=== PATIENT | female | born 1960 | race Caucasian/White ===

== ENCOUNTER 2025-02-03 08:05 | Observation (INO) ==
--- NOTE | 2025-01-20 12:51 | PAT Medication Instructions ---
Medication Instructions Date of Service January 20, 2025 Home Medications duloxetine 20 mg capsule,delayed release 20 mg PO HS esomeprazole magnesium 40 mg capsule,delayed release (Nexium) 40 mg PO BID famotidine 20 mg tablet (Pepcid) 20 mg PO HS levothyroxine 112 mcg tablet 112 mcg PO QAM medical marijuana 1 dose PO UD PRN Pain/energy cetirizine 10 mg tablet 10 mg PO QAM aripiprazole 5 mg tablet (Abilify) 5 mg PO HS ferrous sulfate 325 mg (65 mg iron) tablet 325 mg PO Q2D DO NOT take the morning of surgery medical marijuana 1 dose PO UD PRN Pain/energy cetirizine 10 mg tablet 10 mg PO QAM ferrous sulfate 325 mg (65 mg iron) tablet 325 mg PO Q2D Take morning of surgery With a small sip of water, OTHERWISE NOTHING TO EAT OR DRINK AFTER MIDNIGHT: esomeprazole magnesium 40 mg capsule,delayed release (Nexium) 40 mg PO BID levothyroxine 112 mcg tablet 112 mcg PO QAM Take evening before surgery duloxetine 20 mg capsule,delayed release 20 mg PO HS esomeprazole magnesium 40 mg capsule,delayed release (Nexium) 40 mg PO BID famotidine 20 mg tablet (Pepcid) 20 mg PO HS medical marijuana 1 dose PO UD PRN Pain/energy (if needed) aripiprazole 5 mg tablet (Abilify) 5 mg PO HS Other Notes If you have any questions please call us at [phone] or [phone] or [phone] or [phone]
--- NOTE | 2025-01-24 10:40 | Anesthesiology Consultation ---
Date of Service January 24, 2025 Assessment & Plan (1) Encounter for pre-operative examination: - Patient reports history of hemorrhage with multiple surgeries in the remote past reporting extensive work-up which was negative for a bleeding disorder. She reports no issues with subsequent ankle surgery. Coags are WNL. Case discussed in detail with Dr. Landaverde who advised patient is acceptable to proceed with surgery from anesthesia standpoint with neuraxial anesthesia, FYI sent to surgeon's office. - medical clearance 01/21/25 [place]: "...Chronic medical conditions are stable to proceed with surgery as scheduled..." - Outpatient joint assessment: Patient is currently scheduled for inpatient pathway. If re-evaluated and patient/surgeon requests outpatient pathway, patient is not ideal candidate for outpatient joint program. Chart Review Chart Review: Acceptable Risk for Surgery and Patient seen in Pre Admission Testing Teaching & Discussion Pre-Anesthesia Teaching/Discussion Notes: Instructed NPO after midnight before surgery, except medications with 15 cc of water. Medication instructions provided according to the PAT guidelines. History Surgery Operation Date: 02/03/25 11:15 Proposed Procedures p Robotic assisted Left Total Knee Arthroplasty - Olvin Lu DO Height/Weight Height: 5 ft 5 in Weight: 80.1 kg Allergies Allergy/AdvReac Type Severity Reaction Status Date / Time amoxicillin [From Augmentin] AdvReac C-diff Verified 01/21/25 10:35 clavulanic acid AdvReac C-diff Verified 01/21/25 10:35 [From Augmentin] NSAIDS (Non-Steroidal AdvReac stomach Verified 01/21/25 10:35 Anti-Inflamma pains, vomiting allergy bracelets AdvReac Rash Uncoded 01/21/25 10:35 Medications Home Medications Medication Instructions Recorded Confirmed Last Taken duloxetine 20 mg capsule,delayed 20 mg PO HS 05/10/24 01/21/25 Unknown release esomeprazole magnesium 40 mg 40 mg PO BID 05/10/24 01/21/25 Unknown capsule,delayed release (Nexium) famotidine 20 mg tablet (Pepcid) 20 mg PO HS 05/10/24 01/21/25 Unknown levothyroxine 112 mcg tablet 112 mcg PO QAM 05/10/24 01/21/25 Unknown medical marijuana 1 dose PO UD PRN Pain/energy 06/20/24 01/21/25 Unknown cetirizine 10 mg tablet 10 mg PO QAM 11/18/24 01/21/25 Unknown aripiprazole 5 mg tablet (Abilify) 5 mg PO HS #90 tabs 01/21/25 01/21/25 Unknown azelastine 137 mcg (0.1 %) nasal 1 spray intranasal Q12H #30 mL 01/21/25 01/21/25 Unknown spray ferrous sulfate 325 mg (65 mg 325 mg PO Q OTHER DAY 01/21/25 01/21/25 Unknown iron) tablet sertraline 100 mg tablet 100 mg PO .every bedtime 01/21/25 01/21/25 Unknown Past Medical History Medical History (Updated 01/24/25 @ 11:01 by Rae Ram PA-C) Gong esophagus Fibromyalgia GERD (gastroesophageal reflux disease) controlled, stable per pt Hiatal hernia History of anemia History of blood transfusion (~1987) hysterectomy-states had negative work-up for bleeding disorder History of COVID-19 (~2020) 2020, leg cramping and loss of taste remains History of depression History of diverticulitis last flare several years ago HLD (hyperlipidemia) hx Hx of migraines Hypothyroidism IBS (irritable bowel syndrome) Nausea and vomiting after administration of anesthetic agent w/ every EGD, "they have to roll her over so she can puke, w/last EGD she had to be intubated" Prediabetes Sleep apnea no device Tendency to bleed patient reports hemorrhaging after tonsillectomy and hysterectomy-states formal work-up in for bleeding disorder was negative Patient denies h/o stroke, seizures, heart attack, heart failure, HTN, or blood clots/DVTs. Exercise / Class Metabolic Activity II 4-5 Yardwork/Stairs/Walk up hill (shortness of breath with one flight of stairs since foot fracture last year and reduced physical activity-denies change or worsening; denies chest discomfort) Past Family History Family History Brother Alcohol abuse Anxiety Depression Diabetes Lung cancer Hypertension Mother Anxiety Depression Hypertension Gallbladder disease Father Diabetes Heart disease Hypertension Kidney disease Myocardial infarction Sister Alcohol abuse Anxiety Breast cancer Depression Diabetes Hypertension Denies family history of Ovarian cancer Prostate cancer Colorectal cancer Past Surgical History Surgical History H/O abdominoplasty H/O bilateral breast reduction surgery H/O: hysterectomy w/ appendectomy History of ankle surgery (RIGHT) History of bilateral tubal ligation History of esophagogastroduodenoscopy (EGD) History of tonsillectomy Hx of cholecystectomy Hx of colonoscopy (2019) Past Anesthesia History No Family Hx of Anesthesia Complications and Other (required intubation for EGD-post-op sore throat) History of PONV No Hx of Motion Sickness and History of PONV Social History Smoking Status: Former smoker Do You Dip or Chew Tobacco: No Smoking End Date: 1999 Hx Alcohol Use: Yes (years ago) Hx Substance Use: Yes (medical marijuana-advised) substance use type: marijuana Last Used Substance Other:: daily use Review of Systems Patient denies chest pain, shortness of breath, dyspnea on exertion, fever, chills, cough, wheezing, or palpitations. Physical Exam Vital Signs Vitals BP 109/76 P 80 TEMP 98.6 SP02 96% on RA RESP 18 Physical Patient resting comfortably in chair in no acute distress, alert and oriented, responding appropriately throughout visit Full cervical extension range of motion without pain TMD 3.5 finger breadths Mallampati Score 2 Dentition: several broken teeth-pt states "all my teeth are bad", denies loose teeth, caps/crowns, implants or bridges Lungs: normal respiratory effort. Good air movement, clear throughout to auscultation, no adventitious breath sounds Cardiac: regular rate and rhythm, no murmurs noted Carotid arteries: negative bruit bilat Lab Results Anesthesia Preop Results Results Anesthesia Widget: WBC 6.67 K/ul (4.8-10.8) 01/24/25 Hgb 12.4 g/dl (12.0-16.0) 01/24/25 Hct 37.1 % (37.0-47.0) 01/24/25 Plt 242 K/uL (130-400) 01/24/25 Na 139 mmol/L (136-145) 01/24/25 K 4.3 mmol/L (3.5-5.1) 01/24/25 Cl 103 mmol/L (98-107) 01/24/25 CO2 31 mmol/L (21-32) 01/24/25 BUN 9 mg/dl (6-23) 01/24/25 Creat 1.06 mg/dl (0.6-1.2) 01/24/25 Glucose Level 81 mg/dl (70-99(Fasting)) 01/24/25 PT 10.1 Seconds (9.0-12.0) 01/24/25 PTT 29 Seconds (21-31) 01/24/25 INR 0.9 (0.9-1.1) 01/24/25 TSH 0.728 uIu/ml (0.300-4.500) 01/24/25 HA1c 5.8 % (4.5-5.6) H 01/24/25 Blood Type AB Positive 01/24/25 Antibody Screen NEGATIVE 01/24/25 Testing Electrocardiogram Date: 01/24/25 NSR, rate 73 bpm Chest X-Ray Date: 01/24/25 No acute findings.
[~2025-02-03 08:05] MED LIST: BUPIVACAINE 0.5 % 5 MG/1 ML PF 10ML VIAL ONE; EPINEPHrine INJ 1 MG/ML AMP ONE; ROPIVACAINE 0.5% 5 MG/ML 30 ML VIAL ONE
[2025-02-03] MEDS ORDERED: PROPOFOL IV EMULSION 10 MG/ML 100 ML VIAL IV ONE (08:06)
[2025-02-03] MEDS ORDERED: MIDAZOLAM HCL 1 MG/ML 2ML VIAL ONE (08:06)
[2025-02-03] MEDS: LR 60ML/HR IV SCH (08:56)
[2025-02-03] MEDS: dexAMETHasone**PF** 10 MG/ML VIAL IV SCH (09:01)
[2025-02-03] MEDS: FAMOTIDINE 20 MG TAB PO SCH ×2 (09:01→21:05)
[2025-02-03] MEDS: GABAPENTIN 300 MG CAP PO SCH (09:01)
[2025-02-03] MEDS: ACETAMINOPHEN 500 MG TAB PO SCH ×2 (09:01→14:20)
[2025-02-03] MEDS: LR 500ML BOLUS, THEN 15ML/HR IV SCH (09:12)
--- NOTE | 2025-02-03 09:26 | History & Physical Bridge Note ---
Date of Service February 03, 2025 History & Physical Bridge Note I have examined the patient, reviewed the History & Physical and in the interval since the performance of the History & Physical I have noted the following changes of clinical significance: no changes noted
[2025-02-03] MEDS: TRANEXAMIC ACID 1,000 MG **IV Pre-op IV SCH (10:01)
[2025-02-03] MEDS: ORTHO JOINT ANESTHETIC ONE (11:08)
[2025-02-03] MEDS: ROPIV 0.5% 246mg, Ketorolac 30mg, EPINEPHrine 0.5mg in NSS INFIL SCH (11:16)
--- NOTE | 2025-02-03 11:30 | Operative Report ---
[facility] Post Operative Report Pre & Post Diagnosis Operation Date: 02/03/25 10:00 Pre-Op Diagnosis: Osteoarthritis of left knee Post-Op Diagnosis: Osteoarthritis of left knee I identified the patient and participated in the time-out.: Yes Procedure Operation Date: 02/03/25 10:00 Actual Procedures p Robotic Assisted Left Total Knee Arthroplasty(Left) - Olvin Lu DO Surgeon Olvin Lu DO Warehouse Handler Reinaldo Almanza PA-C Estimated Blood Loss 30 Findings Consistent with Post-Op Diagnosis Specimens Left femoral and tibial bone Description of Procedure Implants used: I used a [employer] total knee arthroplasty system with a size 9 narrow PS femur, D tibia, 32 patella, and a size 10 CPS polyethylene bearing. All components were press-fit in place. Carri arrived for the above procedure. She was seen in the preoperative holding area and the operative extremity was identified and signed. She was given a preoperative antibiotic, TXA, a spinal anesthetic and an adductor nerve block. She was taken back to the operating room and laid on the table in supine position. She was given basic sedation. The operative knee was then prepped and draped in sterile fashion. A timeout was done, and the patient and the operative extremity was properly identified. A midline incision was made directly over the patella. Dissection was taken down to the extensor mechanism. A medial parapatellar arthrotomy was used. The medial retinaculum was released and the fat pad was mostly excised. The knee was flexed and the ACL, PCL, and meniscus were removed. The alignment of the knee replacement was assisted with a [employer] robotic knee. The femoral array was pinned in the distal femur and the tibial array was pinned using a percutaneous technique in the upper shaft of the tibia. The robot was appropriately calibrated and the structure of the knee was mapped out. The components were then manipulated on the screen to account for any malalignment and to assist in gap balancing. Once I was happy with the placement of the components on the screen, a distal femoral cutting guide was brought in place. The distal femur was then resected. The femur measured to be a size 9. A 4-in-1 cutting block was then put into place by the robot and 2 peg holes were drilled. The 4-in-1 cutting block was then impacted into place and anterior, posterior, and chamfer cuts were made. The cutting block was then brought down to the tibia and pinned into place. The proximal tibia was then resected. The posterior aspect of the knee was then opened up and any additional meniscus fragments and osteophytes were removed. The tibia measured to be a size D. The tibial plate was then placed in the appropriate rotation and the tibia was drilled and punched. Trial components were then placed. The patella was then everted and 9 mm was resected off the posterior aspect of the patella. The patella measured to be a size 32. 3 peg holes were then drilled. A trial patella was placed. A size 10 CPS polyethylene insert was then trialed. The knee was brought through a full range of motion and felt to be stable. Trial components were then removed. The surrounding soft tissues were injected with 100 cc of an orthopedic pain control cocktail. All components were then press-fit in place. The final polyethylene insert was then snapped into place. The tourniquet was deflated. Hemostasis was obtained. A dilute betadyne lavage was then done for 3 minutes. The joint was then irrigated with normal saline solution. The medial parapatellar arthrotomy was then closed with #1 Vicryl suture. The skin was closed with 2-0 Vicryl, 3-0V lock suture, and Speed Zipline. A soft compressive dressing was placed. She was then transferred to a hospital bed and taken to the postanesthesia care unit in stable condition. She tolerated the procedure well. Nghia Phan PA-C, was present for the entire procedure. He was critical for patient positioning, prepping, draping, retraction exposure, wound closure and application of sterile dressing. I attest to the content of the Intraoperative Record and any orders documented therein. Any exceptions are noted below.
[2025-02-03] MEDS: ONDANSETRON INJ 2 MG/ML 2 ML VIAL IV STA (12:38)
--- NOTE | 2025-02-03 12:50 | XRay Report ---
XR knee LT 1 or 2V routine CLINICAL HISTORY: Surgical Post Op COMPARISON: None FINDINGS: Left knee prosthesis shows no hardware complication. There is expected soft tissue gas. IMPRESSION: Unremarkable postoperative exam. ACT 112: Negative or not required by law. Electronically signed by: Matt Frederick M.D. 02/03/2025 12:49 PM
[2025-02-03] MEDS ORDERED: METOCLOPRAMIDE HCL INJ 5 MG/ML 2 ML VIAL IV PRN (13:17)
[2025-02-03] MEDS ORDERED: diphenhydrAMINE Capsule 25 MG CAP PO PRN (13:17)
[2025-02-03] MEDS ORDERED: NO NSAIDS SCH (13:17)
[2025-02-03] MEDS ORDERED: NALOXONE HCL 0.4 MG/1 ML VIAL/CARP IV PRN (13:17)
[2025-02-03] MEDS ORDERED: HYDROmorphone INJ 0.5 MG/0.5 ML SYR IV PRN (13:17)
[2025-02-03] MEDS ORDERED: ONDANSETRON INJ 2 MG/ML 2 ML VIAL IV PRN (13:17)
[2025-02-03] MEDS ORDERED: MAGNESIUM HYDROXIDE SUSP 30 ML UDC PO PRN (13:17)
--- NOTE | 2025-02-03 13:29 | Anesthesiology Progress Note ---
Date of Service February 03, 2025 Anesthesia Post Procedure Vital Signs Vital Signs: Temp Pulse Pulse Resp BP Pulse Ox O2 Del Method 02/03/25 12:35 36.3 C L 98 H 18 131/89 95 Room Air 02/03/25 12:25 95 H 18 133/93 96 Room Air 02/03/25 12:15 87 17 124/82 98 Oxymask 02/03/25 12:05 86 17 119/89 94 Oxymask 02/03/25 11:56 36.0 C L 100 H 17 137/94 94 Oxymask 02/03/25 08:38 36.7 C 85 20 122/89 94 Room Air O2 Flow Rate 02/03/25 12:35 02/03/25 12:25 02/03/25 12:15 5 02/03/25 12:05 5 02/03/25 11:56 5 02/03/25 08:38 Pain Intensity Left Knee: Pain Intensity: 6 Generalized: Pain Intensity: 2 Transfer of Care Handoff Completed per policy Notes Mental Status: alert / awake / arousable Patient Amnestic to Procedure: Yes Nausea / Vomiting: adequately controlled Pain: adequately controlled Airway Patency, RR, SpO2: stable & adequate BP & HR: stable & adequate Hydration State: stable & adequate Neuraxial Anesthesia: was administered and sensory block is resolving Anesthetic Complications: no major complications apparent
[2025-02-03] MEDS: ONDANSETRON INJ 2 MG/ML 2 ML VIAL ONE (13:37)
[2025-02-03] MEDS: SODIUM CHLORIDE 0.9% 1,000 ML IV SCH (14:20)
[2025-02-03] MEDS: ARIPiprazole 5 MG TAB PO SCH (21:05)
[2025-02-03] MEDS: SENNA 8.6 MG TAB PO SCH (21:07)
[2025-02-03] MEDS: DOCUSATE SODIUM 100 MG CAP PO SCH (21:07)
[2025-02-03] MEDS: SERTRALINE HCL 100 MG TABLET PO SCH (21:07)
[2025-02-03] MEDS: ASPIRIN 81 MG ECTAB PO SCH (21:07)
[2025-02-04 04:17] VITALS: RESP 16
[2025-02-04] MEDS: LEVOTHYROXINE SODIUM 112 MCG TABLET PO SCH (06:11)
[2025-02-04] MEDS: MULTIVITAMIN TAB PO SCH (07:57)
[2025-02-04] MEDS: CETIRIZINE HCL 10 MG TABLET PO SCH (07:57)
--- NOTE | 2025-02-04 08:07 | Orthopedic Progress Note ---
Date of Service February 04, 2025 Assessment & Plan (1) Status post total left knee replacement: * Continue Current Treatment * Disposition: home * Daily treatment: Physical Therapy/ Occupational Therapy per protocol * Weight bearing status: WBAT * Continue to monitor for ABLA * Pain control * DVT prophylaxis, ASA * Office/hospital f/u 2 weeks for progress check and staple/suture removal * Plan for discharge today pending PT/OT clearance Subjective .Active Problems: S/p left TKA POD 1 64 y/o female s/p left TKA. Doing well overall, pain managed and improved function. Denies fever/chills, chest pain/SOB, nausea/vomiting. Otherwise no complaints. Review of Systems All systems reviewed & are unremarkable except as noted in HPI & below. Physical Exam . * General: Alert and oriented, no acute distress * Constitutional: well-developed, well-nourished. * Respiratory: Normal respiratory effort, no distress * Gastrointestinal: No tenderness to palpation, no rigidity or guarding. * Skin: No rash or lesion. * Neurologic: Grossly normal * Musculoskeletal: left knee surgical dressing CDI, not removed for exam. Otherwise no obvious deformity or overlying skin changes RLE. Diffuse TTP distal thigh and knee region. Otherwise no specific tenderness of proximal thigh, lower leg, foot/ankle. AROM knee flexion 80 degrees. AROM foot/ankle intact. Sensation intact plantar/dorsal foot. Brisk capillary refill. Results & Data Results & Data Laboratory Results . Diagnostic Findings . Knee X-Ray 02/03/25 12:01 XR knee LT 1 or 2V routine CLINICAL HISTORY: Surgical Post Op COMPARISON: None FINDINGS: Left knee prosthesis shows no hardware complication. There is expected soft tissue gas. IMPRESSION: Unremarkable postoperative exam. ACT 112: Negative or not required by law. Electronically signed by: Matt Frederick M.D. 02/03/2025 12:49 PM PG Care Time/CCT Total # of Minutes Spent Total Time Spent with Patient: Total time spent is greater than 50% in coordination of care (as documented) at patient's floor/unit and/or counseling patient: Coding Level of Care Code 16363 Post Operative Follow-Up Diagnoses Status post total left knee replacement Z96.652
[2025-02-04 11:22] VITALS: BP 128/80; PULSE 90; TEMP 98.1; O2SAT 94
== END 2025-02-04 11:51 | disposition home or self-care (01) ==
LOC: 3E 08:05 → ASU 08:05
DX: Z88.8 Allergy status to other drugs, medicaments and biological substances; E03.9 Hypothyroidism, unspecified; Z88.1 Allergy status to other antibiotic agents; Z87.891 Personal history of nicotine dependence; Z91.048 Other nonmedicinal substance allergy status; F32.A Depression, unspecified; Z79.899 Other long term (current) drug therapy; Z79.890 Hormone replacement therapy; Z68.29 Body mass index [BMI] 29.0-29.9, adult; K22.70 Barrett's esophagus without dysplasia; M79.7 Fibromyalgia; K21.9 Gastro-esophageal reflux disease without esophagitis; G47.33 Obstructive sleep apnea (adult) (pediatric); M17.12 Unilateral primary osteoarthritis, left knee; E78.5 Hyperlipidemia, unspecified; G43.909 Migraine, unspecified, not intractable, without status migrainosus; I10 Essential (primary) hypertension; Z88.0 Allergy status to penicillin; E66.9 Obesity, unspecified; R73.03 Prediabetes